=== PATIENT | female | born 1975 | race Caucasian/White ===

== ENCOUNTER 2023-02-24 15:19 | Outpatient (CLI) | payer OTHER, SELFPAY ==
--- NOTE | 2023-02-24 15:20 | CRLHL7_ITS ---
For Patients: As a result of the Century Cures Act, medical imaging exams and procedure reports are released immediately into your electronic medical record. You may view this report before your referring provider. If you have questions, please contact your health care provider. BILATERAL DIGITAL SCREENING MAMMOGRAM WITH TOMOSYNTHESIS AND COMPUTER-AIDED DETECTION CLINICAL HISTORY: Routine screening exam. COMPARISON: 11/19/2021, 07/28/2020, 07/19/2019. TECHNIQUE: Digital mammogram in CC and MLO projections including computer-aided detection (CAD). Tomosynthesis utilized. BREAST COMPOSITION: The breasts are heterogeneously dense, which may obscure small masses. FINDINGS: RIGHT Breast: No suspicious findings. LEFT Breast: Nodular density within the lower inner quadrant 6 cm from the nipple. IMPRESSION: LEFT breast asymmetry/mass. RECOMMENDATIONS: Additional mammographic views of the LEFT breast including 3D spot compression CC/MLO. LEFT breast ultrasound may also be required. BI-RADS Category 0: Incomplete: Need Additional Imaging Evaluation and/or Prior Mammograms for Comparison [facility] will contact the patient for follow-up. A lay language report of this examination will be provided to the patient. Dictated by Enrique Funez MD @ 03/02/2023 8:47:16 AM jj/Dictated by: Enrique Funez MD @ 03/02/2023 8:47:00 AM (Electronically Signed)
== END 2023-02-24 15:20 | disposition home or self-care (01) ==
LOC: MAMMO 15:19
PROVIDERS: PCP Family Medicine; Visit Provider Family Medicine
DX: Z12.31 Encounter for screening mammogram for malignant neoplasm of breast (principal); N63.20 Unspecified lump in the left breast, unspecified quadrant
CPT/HCPCS: 77063; 77067

== ENCOUNTER 2023-03-08 10:35 | Outpatient (CLI) | payer OTHER, SELFPAY ==
--- NOTE | 2023-03-08 10:45 | CRLHL7_ITS ---
For Patients: As a result of the Cures Act, medical imaging exams and procedure reports are released immediately into your electronic medical record. You may view this report before your referring provider. If you have questions, please contact your health care provider. DIGITAL DIAGNOSTIC LEFT MAMMOGRAM USING TOMOSYNTHESIS AND COMPUTER-AIDED DETECTION LEFT BREAST ULTRASOUND CLINICAL HISTORY: LEFT breast mass/asymmetry. COMPARISON: 02/24/2023. TECHNIQUE: Digital LEFT mammogram in two projections. Tomosynthesis and CAD utilized. Real-time ultrasound imaging of LEFT breast with imaging documentation. BREAST COMPOSITION: The breast is heterogeneously dense, which may obscure small masses. FINDINGS: 3D spot compression CC/MLO LEFT breast mammogram images submitted. Persistent nodular density within the lower breast without architectural distortion. Targeted LEFT breast ultrasound performed in the inferior LEFT breast. At 8 o`clock 6 cm from the nipple, there is a solid hypoechoic nodule with increased through-transmission measuring 1.7 x 0.9 x 1.1 cm. No abnormal vascularity. IMPRESSION: Benign fibroadenoma LEFT breast 8 o`clock 6 cm from the nipple measuring 1.7 cm. RECOMMENDATIONS: Annual BILATERAL screening mammography. Results and recommendations discussed with the patient. BI-RADS Category 2: Benign A lay language report of this examination will be provided to the patient. Dictated by Enrique Funez MD @ 03/08/2023 12:23:40 PM /Dictated by: Enrique Funez MD @ 03/08/2023 12:23:00 PM (Electronically Signed)
--- NOTE | 2023-03-08 11:15 | CRLHL7_ITS ---
For Patients: As a result of the Cures Act, medical imaging exams and procedure reports are released immediately into your electronic medical record. You may view this report before your referring provider. If you have questions, please contact your health care provider. PLEASE SEE DIGITAL DIAGNOSTIC LEFT MAMMOGRAM PERFORMED SAME DAY CRL:ramona greene/Dictated by: Enrique Funez MD @ 03/08/2023 12:23:00 PM (Electronically Signed)
== END 2023-03-08 10:36 | disposition home or self-care (01) ==
LOC: MAMMO 10:35
PROVIDERS: PCP Family Medicine; Visit Provider Family Medicine
DX: N63.20 Unspecified lump in the left breast, unspecified quadrant (principal); D24.2 Benign neoplasm of left breast; R92.8 Other abnormal and inconclusive findings on diagnostic imaging of breast
CPT/HCPCS: 76642; 77065; G0279

== ENCOUNTER 2023-05-11 10:49 | Emergency (ER) | payer OTHER, SELFPAY ==
[2023-05-11 11:12] VITALS: BP 134/88; PULSE 84; RESP 20; TEMP 36.3; O2SAT 98; BMI 32.4
--- NOTE | 2023-05-11 11:45 | CRLHL7_ITS ---
For Patients: As a result of the Century Cures Act, medical imaging exams and procedure reports are released immediately into your electronic medical record. You may view this report before your referring provider. If you have questions, please contact your health care provider. INDICATION: LEFT SIDED ABD PAIN. X 3 DAYS TECHNIQUE: CT abdomen and pelvis without contrast. COMPARISON: None. FINDINGS: Lower chest: The visualized lower lungs are aerated. No pleural or pericardial effusion. ABDOMEN: Liver: Normal attenuation. Gallbladder and biliary: Normal gallbladder without radiopaque stone. Normal caliber bile ducts. Spleen: Normal size and attenuation. Pancreas: The noncontrast pancreas is homogeneous in attenuation without peripancreatic inflammatory changes or ductal dilatation. Adrenal glands: Normal adrenal glands. Kidneys and ureters: Normal attenuation. No radio-opaque calculi. No hydroureteronephrosis. GI tract: The stomach is relatively decompressed. Normal caliber small and large bowel loops. Normal appendix. Scattered colonic diverticula without diverticulitis. Vascular structures: Normal caliber aorta with atherosclerotic calcifications. Lymph nodes: No lymphadenopathy in the abdomen or pelvis by size criteria. Peritoneum: No free air, free fluid, or focal drainable fluid collection. PELVIS: Genitourinary system: Urinary bladder is relatively decompressed. Age-appropriate uterus markedly positioned IUD. Dominant right ovarian cyst. SKELETAL STRUCTURES AND SOFT TISSUES: S-shaped curvature of the thoracolumbar spine. Multiple tiny sclerotic foci in the pelvis, statistically representing bone islands. IMPRESSION: No discrete acute abdominal or pelvic process. No obstruction. No hydroureteronephrosis. Diverticulosis without diverticulitis. Dominant right ovarian cyst. Please note that all CT scans at this facility use dose modulation, iterative reconstruction, and/or weight-based dosing when appropriate to reduce radiation dose to as low as reasonably achievable. Dictated by Enrique Richey MD @ 05/11/2023 1:31:15 PM (Electronically Signed)
--- NOTE | 2023-05-11 11:46 | ED.ABDPAIN ---
HPI - Abdominal Pain General Chief Complaint: Abdominal Pain Stated Complaint: Lower abdominal pain Time Seen by Provider: 05/11/23 11:34 History of Present Illness HPI narrative: This 47-year-old female comes in reporting left-sided abdominal pain for the past 3-4 days. She states that the pain is constant. She does not have any nausea, vomiting, fever, dysuria, or blood in the toilet. She does have a history of endometriosis and has had her left ovary removed. She is scheduled for hysterectomy in a couple months. She states that she has not had pain like this before. Related Data Home Medications Medication Instructions Recorded Confirmed levonorgestrel 21 mcg/24 hours (8 1 device intrauterine ONCE 03/08/23 03/08/23 yrs) 52 mg intrauterine device (Mirena) Previous Rx's Medication Instructions Recorded peg 3350-electrolytes 236 240 ml PO Q10M bowel prep #4,000 mL 03/17/23 gram-22.74 gram-6.74 gram-5.86 gram solution (Golytely) bupropion HCl 150 mg 24 hr tablet, 150 mg PO QAM #90 tabs 04/17/23 extended release sertraline 100 mg tablet 100 mg PO Q24H #90 tabs 04/17/23 ketorolac 10 mg tablet 10 mg PO Q8H 5 days #15 tabs 05/11/23 Allergies Allergy/AdvReac Type Severity Reaction Status Date / Time iodine Allergy Mild Verified 05/11/23 11:12 Review of Systems Status of ROS Reports: 10 or more systems reviewed and unremarkable except as noted in History and below Narrative Constitutional: No fevers, no weight gain or loss. Eyes: No discharge. No vision changes. HENT: No congestion, no sore throat, no ear pain. Cardiovascular: No chest pain, no palpitations. Respiratory: No shortness of breath, no wheezes, no cough. Gastrointestinal: No vomiting, no diarrhea. Left-sided abdominal pain as described above. Genitourinary: No dysuria, no hematuria. Musculoskeletal: Normal range of motion. Skin: No rashes, no pruritis. Neurological: No dizziness, weakness, sensory change, speech change. Endo/Heme/Allergies: No bruising or bleeding. No polydipsia. Pysch: no suicidality, no anxiety, no insomnia. All other systems reviewed and are negative. [facility] Medical History (Updated 05/11/23 @ 13:59 by Jin Justin MD) BMI 36.0-36.9,adult ?Z68.36 - Body mass index [BMI] 36.0-36.9, adult (ICD-10) Endometriosis (~2003) ?N80.9 - Endometriosis, unspecified (ICD-10) Dysmenorrhea ?N94.6 - Dysmenorrhea, unspecified (ICD-10) Chronic pelvic pain in female ?R10.2 - Pelvic and perineal pain (ICD-10) ?G89.29 - Other chronic pain (ICD-10) Major depressive disorder, recurrent episode with anxious distress ?F33.9 - Major depressive disorder, recurrent, unspecified (ICD-10) Surgical History (Updated 03/08/23 @ 10:53 by Mady Mi MD) History of hysteroscopy (~01/2022) ?Z98.890 - Other specified postprocedural states (ICD-10) History of left oophorectomy (~2003) ?Z90.721 - Acquired absence of ovaries, unilateral (ICD-10) Family History (Updated 03/08/23 @ 10:49 by Mady Mi MD) Mother Thyroid disease High blood pressure Father Thyroid disease High blood pressure Social History (Updated 03/08/23 @ 10:52 by Mady Mi MD) Narrative: Cis gender, lesbian woman Relationship status: . : Wendy Occupation: [employer] Education: Bachelor's degree. History of STI: No History of PID: No History of abnormal Pap smear: Yes. Reports that her previous [employer] told her that her cervix looks Funky. Colposcopic biopsy at the time of D&C 01/2022 was normal: patient report Tobacco: No lifetime nonsmoker E cigarette: Yes. 12 mg daily Alcohol: No Illicit/recreational drug use: No Concern for safety at home or work: No Exercise: Yes, twice per week cycle at least 30 minutes Smoking Status: Current every day smoker Do you use any of these nicotine containing products: Vaping Products Second hand tobacco smoke exposure: No How often do you have a drink containing alcohol: never How often do you have six or more drinks on one occasion: Never AUDIT-C Alcohol total score: 0 Non-prescribed substance use: marijuana (any form) Little interest or pleasure in doing things: several days Feeling down, depressed, or hopeless: several days service: No Exam Narrative: Exam Narrative: Constitutional: Well-developed, well-nourished, no acute distress. HEENT: Normocephalic, atraumatic. Neck: Normal range of motion. Nontender. Supple. Heart: Regular. No murmurs. Normal rate. Intact distal pulses. Lungs: Clear to auscultation. No chest discomfort. No wheezes, rhonchi, or rales. Abdomen: Normal bowel sounds. Tenderness in the left abdomen. No rebound tenderness. No pain when percussing over the left flank. Genitalia: Deferred. Back: No midline tenderness. Normal range of motion. Extremities: Normal range of motion. No injury. Skin: Intact. No rash. Warm. No erythema or pallor. Neurologic: No altered sensation. No weakness. Alert and oriented. Psychiatric: No suicidality. No anxiety or depression. No insomnia. Nursing notes and vitals signs are reviewed. Const: Vital Signs, click to edit/add: Vital Signs - 24 hr 05/11/23 11:12 Temperature 97.3 F L Pulse Rate [Pulse Oximeter] 84 Respiratory Rate 20 Blood Pressure [Ri ght Upper Arm] 134/88 Pulse Oximetry 98 Oxygen Delivery Me thod Room Air Course Vital Signs Vital signs: Initial Vital Signs Temperature 97.3 F L 05/11/23 11:12 Temperature Source Temporal Artery Scan 05/11/23 11:12 Pulse Rate 84 05/11/23 11:12 Pulse Rhythm Regular 05/11/23 11:12 Respiratory Rate 20 05/11/23 11:12 Blood Pressure 134/88 05/11/23 11:12 Blood Pressure Mean 103 05/11/23 11:12 Blood Pressure Position Sitting 05/11/23 11:12 Pulse Oximetry 98 05/11/23 11:12 Oxygen Delivery Method Room Air 05/11/23 11:12 Vital Signs Temperature 97.3 F L 05/11/23 11:12 Pulse Rate 84 05/11/23 11:12 Respiratory Rate 20 05/11/23 11:12 Blood Pressure 134/88 05/11/23 11:12 Pulse Oximetry 98 05/11/23 11:12 Oxygen Delivery Method Room Air 05/11/23 11:12 Temperature 97.3 F L 05/11/23 11:12 Pulse Rate 84 05/11/23 11:12 Respiratory Rate 20 05/11/23 11:12 Blood Pressure 134/88 05/11/23 11:12 Pulse Oximetry 98 05/11/23 11:12 Oxygen Delivery Method Room Air 05/11/23 11:12 MDM - Abdominal Pain MDM Narrative Medical decision making narrative: This patient comes in reporting left-sided abdominal pain as described above. She does arrive with normal vital signs in her exam is reassuring. She does have allergy to IV contrast so a CT scan without contrast is completed and returns with no findings that explain the patient's discomfort. She does have some diverticulosis but no diverticulitis. This was reassuring to the patient. Urinalysis also returns with no sign of infection. She is okay to be discharged home. She received a prescription for Toradol. She states that she is scheduled to have a hysterectomy in a bit less than 2 months. Lab Data Labs: Lab Results 05/11/23 Range/Units 12:02 Urine Color Yellow (Yellow) Urine Appearance Cloudy A (Clear) Urine pH 8.5 (5.0-8.5) Ur Specific [place] 1.020 (1.000-1.030) Urine Protein Negative (Negative) Urine Glucose (UA) Negative (Negative) Urine Ketones Negative (Negative) Urine Blood Negative (Negative) Urine Nitrite Negative (Negative) Urine Bilirubin Negative (Negative) Urine Urobilinogen 0.2 (0.2-1.0) Ur Leukocyte Esterase Negative (Negative) Urine RBC 0-2 (0-2) Urine WBC 0-2 (0-5) Ur Squamous Epith Cells Many A (None-Few) Amorphous Sediment Many A (None) Urine Bacteria None (None) Imaging Data CT scan - abdomen: Radiologist's impression: No discrete acute abdominal or pelvic process. No obstruction. No hydroureteronephrosis. Diverticulosis without diverticulitis. Dominant right ovarian cyst. Discharge Plan Discharge Clinical Impression: Abdominal pain Patient Disposition: Home, Self-Care Condition: Stable Additional Instructions: Take medication as needed and indicated. Follow up with MD or return if worsening. Prescriptions: New ketorolac 10 mg tablet 10 mg PO Q8H 5 Days Qty: 15 0RF No Action Mirena 21 mcg/24 hours (8 yrs) 52 mg intrauterine device 1 device intrauterine ONCE Rx Instructions: as a single dose peg 3350-electrolytes [Golytely] 236-22.74-6.74 -5.86 gram recon soln 240 ml PO Q10M Qty: 4000 0RF Rx Instructions: until fecal effluent is clear bupropion HCl 150 mg tablet extended release 24 hr 150 mg PO QAM Qty: 90 0RF sertraline 100 mg tablet 100 mg PO Q24H Qty: 90 0RF Follow Up/Referrals: Jocy Lance DO [Primary Care Provider] - Stand Alone Forms: MyHealth Info Instructions
[2023-05-11 12:14] LABS: Appearance Urine Cloudy (Clear); Bilirubin Urine Negative (Negative); Blood Urine Negative (Negative); Color Urine Yellow (Yellow); Glucose Urine Negative (Negative); Ketones Urine Negative (Negative); Leukocyte Esterase Urine Negative (Negative); Nitrite Urine Negative (Negative); Protein Urine Negative (Negative); Urobilinogen Urine 0.2 (0.2-1.0); pH Urine 8.5 (5.0-8.5)
[2023-05-11 12:31] LABS: Amorphous Sediment Urine Many; RBC Urine 0-2 (0-2); Squamous Epithelial Cell Urine Many (None-Few); WBC Urine 0-2 (0-5)
--- NOTE | 2023-05-11 13:28 | PC.NURSE ---
given report to Ale ARNOLD who will take over care.
--- NOTE | 2023-05-11 14:05 | ED.NURSE ---
Pt left before nurse could give her discharge instructions.
== END 2023-05-11 14:05 | disposition home or self-care (01) ==
PROVIDERS: Emergency Provider Emergency Medicine Emergency Medical Services; PCP Family Medicine
DX: R10.9 Unspecified abdominal pain (principal)
CPT/HCPCS: 74176; 81001; 99284

== ENCOUNTER 2023-06-19 09:13 | Outpatient (CLI) | payer OTHER, SELFPAY | END 2023-06-19 09:14 | disposition home or self-care (01) | LOC: NFLDREF 16:40 | PROVIDERS: PCP Family Medicine; Referring Provider Obstetrics & Gynecology; Visit Provider Family Medicine | DX: Z01.818 Encounter for other preprocedural examination (principal); F33.9 Major depressive disorder, recurrent, unspecified; Z13.6 Encounter for screening for cardiovascular disorders; Z13.1 Encounter for screening for diabetes mellitus | CPT/HCPCS: 80053; 80061 ==

== ENCOUNTER 2024-06-21 08:04 | Outpatient (RCR) | payer OTHER, SELFPAY | END 2024-08-19 08:45 | disposition home or self-care (01) | PROVIDERS: PCP Family Medicine; Visit Provider Orthopaedic Surgery Sports Medicine | DX: M72.2 Plantar fascial fibromatosis (principal); M79.671 Pain in right foot; Z51.89 Encounter for other specified aftercare | CPT/HCPCS: 97110; 97161 ==

== ENCOUNTER 2024-09-17 14:47 | Outpatient (CLI) | payer OTHER, SELFPAY ==
--- NOTE | 2024-09-17 15:00 | CRLHL7_ITS ---
For Patients: As a result of the Century Cures Act, medical imaging exams and procedure reports are released immediately into your electronic medical record. You may view this report before your referring provider. If you have questions, please contact your health care provider. Indication: RT LOWER QUADRANT PAIN Technique: CT Abdomen/Pelvis W/ 109CC ISOVUE [id number] Please note that all CT scans at this facility use dose modulation, iterative reconstruction, and/or weight-based dosing when appropriate to reduce radiation dose to as low as reasonably achievable. Comparison: 05/11/2023 Findings: Lung bases are clear. No pleural effusion. No intrahepatic mass. Mild hepatic steatosis. Spleen measures 13.7 cm. Pancreas normal. Gallbladder incompletely distended. No biliary obstruction. Adrenal glands normal. Normal kidneys. Bladder unremarkable. Normal ureters. The uterus is unremarkable. IUD is present. Normal left adnexa. Right ovarian cyst is present, similar to the prior study, measuring 3.3 cm. No bowel obstruction, free air, excess pelvic free fluid or abscess. Normal appendix. No adenopathy. No abdominal wall hernia. Scoliotic deformity. Degenerative disc disease L4-5 and L5-S1. No fracture. Impression: Normal appendix. No bowel obstruction. 3.3 cm chronic right ovarian cyst. Please note that all CT scans at this facility use dose modulation, iterative reconstruction, and/or weight-based dosing when appropriate to reduce radiation dose to as low as reasonably achievable. Dictated by Enrique Funez MD @ 09/19/2024 9:05:34 AM (Electronically Signed)
== END 2024-09-17 14:48 | disposition home or self-care (01) ==
PROVIDERS: PCP Family Medicine; Visit Provider Family Medicine
DX: R10.31 Right lower quadrant pain (principal); N83.201 Unspecified ovarian cyst, right side
CPT/HCPCS: 74177; Q9967